=== PATIENT | male | born 1970 | race Caucasian/White ===

== ENCOUNTER 2017-10-02 07:36 | Emergency (ER) | payer SELFPAY ==
[~2017-10-02] VITALS: Ht 180.3 cm; Wt 75.0 kg
[~2017-10-02 07:36] MED LIST: RISP1 PO
[2017-10-02 07:37] VITALS: BP 144/86; PULSE 110; RESP 20; TEMP 100; O2SAT 98
--- NOTE | 2017-10-02 10:29 | PD ---
HPI Chief Complaint: Cold / Flu Symptoms Time Seen by Provider: 09:56 Travel History International Travel<30 days: No Contact w/Intl Traveler<30days: No Traveled to known affect area: No History of Present Illness HPI This patient complains of cough and congestion and runny nose and body aches. Duration 4 days. Severity is moderate. No chest pain. He has had low-grade fevers. PFSH Past Medical History Arthritis: Yes Blood Disorders: No Bipolar Disorder: Yes Anxiety: No Depression: Yes Cancer: No Cardiovascular Problems: No Diminished Hearing: No Endocrine: No Genitourinary: No Headaches: Yes Immune Disorder: No Musculoskeletal: No Neurologic: Yes Psychiatric: Yes Reproductive: No Respiratory: No Schizophrenia: Yes Seizures: Yes (STS DOES NOT TAKE MEDICATION) Tetanus Vaccination: < 5 Years Influenza Vaccination: Yes Past Surgical History Abdominal Surgery: No AICD: No Appendectomy: Yes Arteriovenous Shunt: No Body Medical Devices: NONE Cardiac Surgery: No Ear Surgery: No Endocrine Surgery: No Eye Surgery: No Genitourinary Surgery: No Gynecologic Surgery: No Insulin Pump: No Joint Replacement: No Oral Surgery: No Pacemaker: No Thoracic Surgery: No Other Surgery: Yes Social History Alcohol Use: Yes (socially) Tobacco Use: No Substance Use: No Allergies-Medications (Allergen,Severity, Reaction): Coded Allergies: erythromycin base (Unverified Allergy, Severe, ANAPHALACTIC SHOCK, 10/02/17 ) penicillin G (Unverified Allergy, Severe, ANAPHALACTIC SHOCK, 10/02/17) Reported Meds & Prescriptions Reported Meds & Active Scripts Active No Active Prescriptions or Reported Medications Review of Systems General / Constitutional: Positive: Fever Respiratory: Positive: Cough Gastrointestinal: No: Vomiting Physical Exam Narrative GENERAL: Well-nourished, well-developed patient. SKIN: Focused skin assessment warm/dry. HEAD: Normocephalic. EYES: No scleral icterus. No injection or drainage. NECK: Supple, trachea midline. No JVD or lymphadenopathy. CARDIOVASCULAR: Regular rate and rhythm without murmurs, gallops, or rubs. RESPIRATORY: Breath sounds equal bilaterally. No accessory muscle use. GASTROINTESTINAL: Abdomen soft, non-tender, nondistended. MUSCULOSKELETAL: No cyanosis, or edema. BACK: Nontender without obvious deformity. No CVA tenderness. Data Data Last Documented VS Vital Signs Date Time Temp Pulse Resp B/P (MAP) Pulse Ox O2 Delivery O2 Flow Rate FiO2 10/02/17 07:37 100.0 110 20 144/86 (105) 98 MDM Medical Decision Making Medical Screen Exam Complete: Yes Emergency Medical Condition: Yes Medical Record Reviewed: Yes Differential Diagnosis Flu syndrome, bronchitis, pneumonia Narrative Course I have reviewed the patient's electronic medical record. This patient presentation is consistent with a flu syndrome. Supportive care is discussed. I do not see indication for antibiotics Gradual resolution is expected Diagnosis Primary Impression: Cough in adult patient Additional Impressions: Myalgia Rhinorrhea Additional Instructions: The patient was advised to follow up with their physician and return if they worsen. Med/Other Pt SpecificInfo: Other Scripts No Active Prescriptions or Reported Meds Disposition: 01 DISCHARGE HOME Condition: Stable Jonn Valera MD Oct 02, 2017 10:29
== END 2017-10-02 10:39 | disposition home or self-care (01) ==
LOC: NEPC 07:36
DX: R05 Cough (principal); M79.1 Myalgia; J34.89 Other specified disorders of nose and nasal sinuses; F31.9 Bipolar disorder, unspecified; F20.9 Schizophrenia, unspecified
CPT/HCPCS: 99282

== ENCOUNTER 2017-10-04 01:06 | Emergency (ER) | payer SELFPAY ==
[~2017-10-04] VITALS: Ht 167.6 cm; Wt 72.0 kg
[2017-10-04 01:11] VITALS: BP 147/88; PULSE 112; RESP 16; TEMP 99; O2SAT 94
[2017-10-04 02:46] VITALS: BP 144/97; PULSE 95; RESP 18; O2SAT 97
[2017-10-04] MEDS ORDERED: MOXIFLOXACIN HYDROCHLORIDE 400 MG TAB PO ONE (03:30)
[2017-10-04] MEDS ORDERED: predniSONE 20 MG TAB PO ONE (03:30)
--- NOTE | 2017-10-04 03:35 | PD ---
HPI Chief Complaint: Cold / Flu Symptoms Time Seen by Provider: 02:44 Travel History International Travel<30 days: No Contact w/Intl Traveler<30days: No Traveled to known affect area: No History of Present Illness HPI 47-year-old white male presents emergency department with complaints of worsening cough, congestion and general malaise. He was seen here in the emergency room 2 days ago and was diagnosed with upper respiratory tract infection. Patient states that he had been sick now for nearly a week. He has had some subjective fever and chills, cough, congestion, myalgias, arthralgias and general malaise. Some sore throat. Yellow productive sputum. He does report increasing shortness of breath and some wheezing. Positive tightness in the chest. He denies any nausea vomiting. No abdominal pain or diarrhea. PFSH Past Medical History Arthritis: Yes Blood Disorders: No Bipolar Disorder: Yes Anxiety: No Depression: Yes Cancer: No Cardiovascular Problems: No Diminished Hearing: No Endocrine: No Gastrointestinal Disorders: No Genitourinary: No Headaches: Yes Immune Disorder: No Musculoskeletal: No Neurologic: Yes Psychiatric: Yes Reproductive: No Respiratory: No Immunizations Current: Yes Schizophrenia: Yes Seizures: Yes (STS DOES NOT TAKE MEDICATION) Tetanus Vaccination: < 5 Years Influenza Vaccination: Yes Past Surgical History Abdominal Surgery: No AICD: No Appendectomy: Yes Arteriovenous Shunt: No Body Medical Devices: NONE Cardiac Surgery: No Ear Surgery: No Endocrine Surgery: No Eye Surgery: No Genitourinary Surgery: No Gynecologic Surgery: No Insulin Pump: No Joint Replacement: No Neurologic Surgery: No Oral Surgery: No Pacemaker: No Thoracic Surgery: No Other Surgery: Yes Social History Alcohol Use: Yes (socially) Tobacco Use: No Substance Use: No Allergies-Medications (Allergen,Severity, Reaction): Coded Allergies: erythromycin base (Unverified Allergy, Severe, ANAPHALACTIC SHOCK, 10/04/17 ) penicillin G (Unverified Allergy, Severe, ANAPHALACTIC SHOCK, 10/04/17) Reported Meds & Prescriptions Reported Meds & Active Scripts Active Avelox (Moxifloxacin HCl) 400 Mg Tab 400 Mg PO DAILY 4 Days Proventil Hfa 6.7 GM Inh (Albuterol Sulfate) 90 Mcg/Act Aer 2 Puff INH Q4-6H PRN Deltasone (Prednisone) 20 Mg Tab 20 Mg PO BID 5 Days Review of Systems Except as stated in HPI: all other systems reviewed are Neg Physical Exam Narrative GENERAL: Well-developed, well-nourished in no acute distress. Nontoxic appearing. HEAD: Normocephalic, atraumatic. EYES: Pupils equal round and reactive. Extraocular motions intact. No scleral icterus. No injection or drainage. ENT: TMs clear without erythema. The external auditory canals clear. Nose: clear . Posterior pharynx is pink and moist. No tonsillar edema or exudate. Uvula midline. Airway patent. NECK: Trachea midline.Supple, nontender, moves head freely. No central bony tenderness or spasm. CARDIOVASCULAR: Regular rate and rhythm without murmurs, gallops, or rubs. RESPIRATORY: Scattered rhonchi with coarse expiratory wheeze. Few left lower lobe rales GASTROINTESTINAL: Abdomen soft, non-tender, nondistended. No hepato-splenomegaly , or palpable masses. No guarding. EXTREMITIES: No clubbing, cyanosis, or edema. No joint tenderness, effusion, or edema noted. BACK: Nontender without deformity or crepitance. No flank tenderness. Data Data Last Documented VS Vital Signs Date Time Temp Pulse Resp B/P (MAP) Pulse Ox O2 Delivery O2 Flow Rate FiO2 10/04/17 02:46 95 18 144/97 (113) 97 Room Air 10/04/17 01:11 99.0 Orders Orders Influenzae A/B Antigen (10/04/17 03:29) Chest, Single Ap (10/04/17 03:29) Prednisone (Deltasone) (10/04/17 03:30) Albuterol-Ipratropium Neb (Duoneb Neb) (10/04/17 03:30) Moxifloxacin (Avelox) (10/04/17 03:30) Ed Discharge Order (10/04/17 04:01) MDM Medical Decision Making Medical Screen Exam Complete: Yes Emergency Medical Condition: Yes Medical Record Reviewed: Yes Interpretation(s) Chest x-ray: Negative for acute infiltrate. Influenza: Negative for influenza. Differential Diagnosis MDM: High Differential diagnoses: Pneumonia, bronchitis, URI, asthma, RAD, influenza Narrative Course Patient was given 60 mg of prednisone, 2 duo nebs, influenza swab and a chest x- ray. Patient was given Avelox 400 mg p.o. The patient has had 2 duo nebs. He is reexamined. the patient is significantly feeling better. Patient is medically stable for discharge. Diagnosis Primary Impression: Bronchitis Additional Impression: Reactive airway disease Patient Instructions: General Instructions Additional Instructions: Rest. Increase fluids. Tylenol and Advil. Robitussin-DM. Avelox, prednisone, and albuterol. Followup with your Dr. in one week. Return to the ER for any problems. Med/Other Pt SpecificInfo: Prescription(s) given Scripts Moxifloxacin (Avelox) 400 Mg Tab 400 MG PO DAILY for Infection for 4 Days, #4 TAB 0 Refills Prov: Ascencion Vásquez MD 10/04/17 Albuterol 6.7 GM Inh (Proventil Hfa 6.7 GM Inh) 90 Mcg/Act Aer 2 PUFF INH Q4-6H Y for SHORTNESS OF BREATH, #1 INHALER 0 Refills Prov: Ascencion Vásquez MD 10/04/17 Prednisone (Deltasone) 20 Mg Tab 20 MG PO BID for 5 Days, #10 TAB 0 Refills Prov: Ascencion Vásquez MD 10/04/17 Disposition: 01 DISCHARGE HOME Condition: Stable Lino Gonzalez Oct 04, 2017 03:34
[2017-10-04] MEDS: RESP: ALBUTEROL 2.5 MG/IPRATROPIUM 0.5 MG NEB (SCH) INH ×2 (03:43→03:44)
[2017-10-04] MEDS ORDERED: ALBU6.7H INH (04:01)
[2017-10-04] MEDS ORDERED: PRED-503 PO (04:01)
[2017-10-04] MEDS ORDERED: MOXI400T4 PO (04:01)
--- NOTE | 2017-10-04 04:01 | RADRPT ---
EXAM DATE/TIME: 10/04/2017 03:50 [facility] COMPARISON: No previous studies available for comparison. INDICATIONS : Cough, fever, and aching MEDICAL HISTORY : None. SURGICAL HISTORY : Appendectomy. Prosthetic cheek and jaw right side ENCOUNTER: Initial ACUITY: 1 day PAIN SCORE: 8/10 LOCATION: Bilateral chest FINDINGS: A single view of the chest demonstrates the lungs to be symmetrically aerated without evidence of mas s, infiltrate or effusion. The cardiomediastinal contours are unremarkable. Osseous structures are intact. CONCLUSION: No acute cardiopulmonary disease demonstrated. David Constantino MD on October 04, 2017 at 4:00 Board Certified Radiologist. This report was verified electronically.
== END 2017-10-04 04:35 | disposition home or self-care (01) ==
LOC: NEPD 01:06
DX: J40 Bronchitis, not specified as acute or chronic (principal); J45.909 Unspecified asthma, uncomplicated; M19.90 Unspecified osteoarthritis, unspecified site; F31.9 Bipolar disorder, unspecified; F20.9 Schizophrenia, unspecified; R56.9 Unspecified convulsions; Z79.51 Long term (current) use of inhaled steroids; Z79.899 Other long term (current) drug therapy; Z88.0 Allergy status to penicillin
CPT/HCPCS: 71045; 87804; 94640; 94664; 99284; J7512